=== PATIENT | female | born 2000 | race Two or more races ===

== ENCOUNTER 2023-02-18 08:18 | Inpatient (IN) | payer OTHER ==
[2023-02-18] MEDS ORDERED: SODIUM CHLORIDE 500 ML IV STA ×2 (08:48→10:26)
[2023-02-18 08:59] VITALS: BP 124/72; RESP 16; TEMP 98.4; BMI 28.3
[2023-02-18] MEDS ORDERED: DEXTROSE 5%-LACTATED RINGERS 1,000 ML IV SCH (09:47)
[2023-02-18 09:58] LABS: BASO % 0.3 % (0-2.0); EOS % 0.6 % (0-4.5); HEMOGLOBIN 11.8 GM/dL (10.7-15.3); LYMPH % 25.6 % (8-40); MCH 26.8 pg (25.7-33.7); MCHC 31.8 g/dl (32.0-36.0); MEAN CELL VOLUME 84.3 fl (80-96); MEAN PLT VOLUME 8.5 fl (7.5-11.1); MONO % 7.3 % (3.8-10.2); NEUT % 66.2 % (42.8-82.8); PLATELET COUNT 169 10^3/uL (134-434); RBC 4.39 M/mm3 (3.60-5.2); RDW 16.6 % (11.6-15.6); WHITE BLOOD COUNT 5.9 K/mm3 (4.0-10.0)
[2023-02-18 10:04] LABS: INR 0.91 (0.83-1.09); PROTHROMBIN TIME (PATIENT) 10.6 SEC (9.7-13.0)
[2023-02-18 10:07] LABS: ACTIVATED PTT 27.3 SECONDS (25.2-36.5)
[2023-02-18 10:10] LABS: POTASSIUM 3.6 mmol/L (3.5-5.1)
[2023-02-18 10:11] LABS: CALCIUM 8.2 mg/dL (8.5-10.1)
[2023-02-18 10:13] LABS: BLOOD UREA NITROGEN 8.4 mg/dL (7-18)
[2023-02-18 10:15] LABS: CREATININE 0.5 mg/dL (0.55-1.3)
[2023-02-18] MEDS ORDERED: TERBUTALINE SULFATE 1 MG/1 ML VIAL SQ ONE (10:26)
[2023-02-18 10:33] VITALS: PULSE 88
== END 2023-02-18 12:15 | disposition home or self-care (01) | DRG 566 ==
LOC: JLDR 08:18
PROVIDERS: ADMIT Obstetrics & Gynecology Maternal & Fetal Medicine; ATTEND Obstetrics & Gynecology Maternal & Fetal Medicine
DX: O32.1XX0 Maternal care for breech presentation, not applicable or unspecified (principal); Z3A.37 37 weeks gestation of pregnancy
CPT/HCPCS: 36415; 80048; 85025; 85610; 85730; 86780; 86850; 86900; 86901

== ENCOUNTER 2023-02-22 19:30 | Inpatient (IN) | payer OTHER ==
[2023-02-22] MEDS ORDERED: CITRIC ACID/SODIUM CITRATE 30 ML UNIT-DOSE CUP PO ONE (20:24)
[2023-02-22] MEDS ORDERED: DEXTROSE 5%-LACTATED RINGERS 1,000 ML IV SCH (20:30)
[2023-02-22 21:00] LABS: BASO % 0.3 % (0-2.0); EOS % 0.2 % (0-4.5); HEMATOCRIT 37.6 % (32.4-45.2); HEMOGLOBIN 12.5 GM/dL (10.7-15.3); LYMPH % 17.2 % (8-40); MCH 27.6 pg (25.7-33.7); MCHC 33.1 g/dl (32.0-36.0); MEAN CELL VOLUME 83.3 fl (80-96); MEAN PLT VOLUME 8.5 fl (7.5-11.1); MONO % 6.7 % (3.8-10.2); NEUT % 75.6 % (42.8-82.8); PLATELET COUNT 183 10^3/uL (134-434); RBC 4.51 M/mm3 (3.60-5.2); WHITE BLOOD COUNT 8.5 K/mm3 (4.0-10.0)
[2023-02-22 21:07] LABS: INR 0.91 (0.83-1.09); PROTHROMBIN TIME (PATIENT) 10.6 SEC (9.7-13.0)
[2023-02-22 21:09] LABS: ACTIVATED PTT 27.4 SECONDS (25.2-36.5)
[2023-02-22 21:27] VITALS: BMI 27.6
[2023-02-22 21:43] LABS: BLOOD UREA NITROGEN 7.9 mg/dL (7-18); CALCIUM 8.8 mg/dL (8.5-10.1); CREATININE 0.6 mg/dL (0.55-1.3); POTASSIUM 3.7 mmol/L (3.5-5.1)
[2023-02-22] MEDS ORDERED: morphine SULFATE/PF 1 MG/2 ML (2cc Syringe - QUVA) ONE (22:50)
[2023-02-22] MEDS ORDERED: ONDANSETRON 4 MG/2 ML VIAL ONE (22:50)
[2023-02-22] MEDS ORDERED: FENTANYL CITRATE/PF 50 MCG/ML VIAL ONE (22:50)
[2023-02-22] MEDS ORDERED: OXYTOCIN 10 UNITS/ML VIAL ONE (22:50)
[2023-02-22] MEDS ORDERED: KETOROLAC TROMETHAMINE 30 MG/1 ML VIAL ONE (22:50)
[2023-02-22] MEDS ORDERED: ceFAZolin SODIUM 1 GM VIAL ONE (23:53)
[2023-02-23 00:56] LABS: CORD PCO2 69.3 mmHg (30-78); CORD pH 7.157 (7.14-7.44)
[2023-02-23 01:00] LABS: CORD BASE EXCESS -3.9 mmol/L (0-2); CORD HCO3 22.1 mmHg (20-29); CORD PCO2 43.5 mmHg (30-78); CORD pH 7.323 (7.14-7.44)
[2023-02-23] MEDS ORDERED: WITCH HAZEL 50% (TUCKS) 40 PAD/JAR PAD TP PRN (01:29)
[2023-02-23] MEDS ORDERED: ACETAMINOPHEN 325 MG TABLET (FP) PO PRN (01:29)
[2023-02-23] MEDS ORDERED: ONDANSETRON 4 MG/2 ML VIAL IVPUSH PRN (01:30)
[2023-02-23] MEDS ORDERED: OXYTOCIN 20 UNITS in 0.9% NS 20 UNIT/1,000 ML INFUS.BAG IV ONE (02:21)
[2023-02-23] MEDS: OXYTOCIN 20 UNITS in 0.9% NS 20 UNIT/1,000 ML INFUS.BAG IV SCH ×2 (02:25→08:25)
[2023-02-23] MEDS: IBUPROFEN 600 MG TABLET (FP) PO PRN ×3 (03:51→22:30)
[2023-02-23] MEDS: oxyCODONE HCL 5 MG TABLET PO PRN (20:30)
[2023-02-24] MEDS: oxyCODONE HCL 5 MG TABLET PO PRN ×2 (06:13→22:04)
[2023-02-24 08:44] LABS: BASO % 0.2 % (0-2.0); EOS % 0.7 % (0-4.5); HEMOGLOBIN 11.4 GM/dL (10.7-15.3); LYMPH % 15.1 % (8-40); MCH 28.1 pg (25.7-33.7); MCHC 33.6 g/dl (32.0-36.0); MEAN CELL VOLUME 83.7 fl (80-96); MEAN PLT VOLUME 8.4 fl (7.5-11.1); MONO % 6.3 % (3.8-10.2); NEUT % 77.7 % (42.8-82.8); PLATELET COUNT 157 10^3/uL (134-434); RBC 4.07 M/mm3 (3.60-5.2); RDW 17.7 % (11.6-15.6); WHITE BLOOD COUNT 8.7 K/mm3 (4.0-10.0)
[2023-02-24] MEDS: IBUPROFEN 600 MG TABLET (FP) PO PRN ×2 (09:09→14:26)
[2023-02-25] MEDS: IBUPROFEN 600 MG TABLET (FP) PO PRN ×4 (01:39→22:17)
[2023-02-26] MEDS: IBUPROFEN 600 MG TABLET (FP) PO PRN (07:47)
[2023-02-26 09:22] LABS: BASO % 0.3 % (0-2.0); EOS % 3.8 % (0-4.5); HEMOGLOBIN 11.2 GM/dL (10.7-15.3); LYMPH % 28.7 % (8-40); MCH 27.5 pg (25.7-33.7); MCHC 32.1 g/dl (32.0-36.0); MEAN CELL VOLUME 85.7 fl (80-96); MEAN PLT VOLUME 8.3 fl (7.5-11.1); MONO % 7.2 % (3.8-10.2); PLATELET COUNT 221 10^3/uL (134-434); RBC 4.08 M/mm3 (3.60-5.2); RDW 17.5 % (11.6-15.6); WHITE BLOOD COUNT 7.3 K/mm3 (4.0-10.0)
[2023-02-26 09:50] VITALS: BP 117/76; PULSE 82; RESP 16; TEMP 98
== END 2023-02-26 12:55 | disposition home or self-care (01) | DRG 540 ==
LOC: JLDR 19:30 → J3W 02-23 03:03
PROVIDERS: ADMIT Obstetrics & Gynecology Maternal & Fetal Medicine; ATTEND Obstetrics & Gynecology Maternal & Fetal Medicine
PROC: 10D00Z1 Extraction of Products of Conception, Low, Open Approach (ICD-10-PCS; principal; 2023-02-23)
DX: O32.8XX0 Maternal care for other malpresentation of fetus, not applicable or unspecified (principal); O41.03X0 Oligohydramnios, third trimester, not applicable or unspecified; Z3A.38 38 weeks gestation of pregnancy; Z37.0 Single live birth
CPT/HCPCS: 36415; 36600; 80048; 82803; 85025; 85610; 85730; 86850; 86900; 86901; 88307-TC; 94010